=== PATIENT | male | born 1980 | race Caucasian/White ===

== ENCOUNTER 2016-11-26 20:27 | Emergency (ER) | payer MEDICAID ==
[~2016-11-26] VITALS: Ht 167.6 cm; Wt 75.0 kg
[~2016-11-26 20:27] MED LIST: HYDR-3533 PO; NAPR500 PO
[2016-11-26 20:28] VITALS: BP 145/65; PULSE 76; RESP 15; TEMP 97.9; O2SAT 99
--- NOTE | 2016-11-26 22:44 | PD ---
HPI Chief Complaint: Cold / Flu Symptoms Time Seen by Provider: 22:42 Travel History International Travel<30 days: No Contact w/Intl Traveler<30days: No Traveled to known affect area: No History of Present Illness HPI Patient comes in complaining of cold/flulike symptoms ongoing for approximately 2 weeks. Patient is using [id number] medication with minimal relief of his symptoms. Patient complaining of cough, congestion, sore throat, and cold sweats. Patient states he works at a [employer]. Denies any nausea, vomiting, chest pain, shortness of breath, diarrhea, or abdominal pain. Denies anything making it worse. States cough is occasionally productive. PFSH Past Medical History Diminished Hearing: No Social History Alcohol Use: Yes (OCCASIONALLY) Tobacco Use: No Substance Use: No Allergies-Medications (Allergen,Severity, Reaction): Coded Allergies: No Known Allergies (Unverified , 11/26/16) Reported Meds & Prescriptions Reported Meds & Active Scripts Active Ventolin Hfa 18 GM Inh (Albuterol Sulfate) 90 Mcg/Act Aer 2 Puff INH Q4H PRN Amoxicillin 875 Mg Tab 875 Mg PO BID 10 Days Lortab 5 mg/325 mg (Hydrocodone/Acetaminophen 5 mg/325 mg) 1 Tab 1 Tab PO Q6H PRN Naprosyn (Naproxen) 500 Mg Tab 500 Mg PO BID Review of Systems Except as stated in HPI: all other systems reviewed are Neg Physical Exam Narrative GENERAL: Well-developed, well nourished, in no acute distress, and non-ill appearing. SKIN: Warm and dry. HEAD: Atraumatic. Normocephalic. EYES: Pupils equal and round. EOMI. No scleral icterus. No injection or drainage. ENT: No nasal bleeding or discharge. Mucous membranes pink and moist. Tympanic membranes pearly walker bilaterally. Posterior pharynx mildly erythematous without exudate. Uvula is midline. Tenderness to facial sinuses to palpation. NECK: Trachea midline. No cervical lymphadenopathy. Supple. No nuclear rigidity. CARDIOVASCULAR: Regular rate and rhythm. No murmur appreciated. RESPIRATORY: No accessory muscle use. No respiratory distress. Clear to auscultation. Breath sounds equal bilaterally. MUSCULOSKELETAL: No obvious deformities. No clubbing. No cyanosis. No edema. Full range of motion. NEUROLOGICAL: Awake and alert. No obvious cranial nerve deficits. Motor grossly within normal limits. Normal speech. PSYCHIATRIC: Appropriate mood and affect; insight and judgment normal. Data Data Last Documented VS Vital Signs Date Time Temp Pulse Resp B/P Pulse Ox O2 Delivery O2 Flow Rate FiO2 11/26/16 20:28 97.9 76 15 145/65 99 Room Air Orders Chest, Single Ap (11/26/16 ) Group A Rapid Strep Screen (11/26/16 22:39) Strep Culture (Group A) (11/26/16 22:42) MDM Medical Decision Making Medical Screen Exam Complete: Yes Emergency Medical Condition: Yes Differential Diagnosis Strep pharyngitis, viral pharyngitis, pneumonia, bronchitis, upper store infection, sinusitis, other Narrative Course Patient looks great, non-ill appearing. The patient is tolerating fluids and is well hydrated. Appears acute sinusitis. No clinical evidence by history or evaluation to suspect meningitis and/or sepsis. There was no evidence to suggest deep abscess or cavernous sinus involvement. I discussed with the patient, diagnosis, plan of care, medications and to follow up with the patients primary physician. The patient was instructed to return if the worsens in anyway, especially if not tolerating fluids, increased sinus pain or swelling, worsening headache, persistent fever, difficulty swallowing or breathing, or as needed. The patient agreed with plan. Patient in no obvious distress upon re-evaluation. All pertinent laboratory/ Radiology result(s) discussed with patient. Patient was asked if they wanted to speak to my attending, which the patient did not wish to do at this time. Any questions/concerns in reference to patient diagnosis/condition discussed and clarified prior to patient's discharge. Reinforced sheer importance of close follow up with patient's primary physician or primary care clinic. Instructed patient to return to ED immediately, if symptoms return/worsen. Pt showed understanding of above instructions. Further instructions and recommendations were detailed in discharge paperwork. Pt ambulated without difficulty out of ED at discharge. Diagnosis Primary Impression: Sinusitis Qualified Code: J01.90 - Acute sinusitis, recurrence not specified, unspecified location Additional Impression: Cough Patient Instructions: Acute Cough (GEN), General Instructions, Sinusitis (ED) Additional Instructions: Follow-up with your primary care physician or ENT next week for reevaluation. Take all medication as prescribed. Use [id number] Tylenol and/or ibuprofen as needed for pain and/or ear. Follow instructions on the packaging. Drink plenty of non-caffeinated and nonalcoholic fluids. Return to the emergency department if symptoms get worse. Med/Other Pt SpecificInfo: Prescription(s) given Scripts Albuterol 18 GM Inh (Ventolin Hfa 18 GM Inh)90 Mcg/Act Aer2 Puff INH Q4H PRN ( COUGH) #1 INHALER Ref 0 Prov:Sasha Melton MD 11/26/16 Amoxicillin 875 Mg Xhm510 Mg PO BID 10 Days Ref 0 Prov:Sasha Melton MD 11/26/16 Disposition: 01 DISCHARGE HOME Condition: Stable James Infante Nov 26, 2016 22:44
--- NOTE | 2016-11-26 22:57 | RADRPT ---
EXAM DATE/TIME: 11/26/2016 22:40 [facility] COMPARISON: No previous studies available for comparison. INDICATIONS : Cough. Cold/flu symptoms. MEDICAL HISTORY : None. SURGICAL HISTORY : None. ENCOUNTER: Initial ACUITY: 2 weeks PAIN SCORE: 0/10 LOCATION: chest FINDINGS: A single view of the chest demonstrates the lungs to be symmetrically aerated without evidence of mas s, infiltrate or effusion. The cardiomediastinal contours are unremarkable. Osseous structures are intact. CONCLUSION: No acute disease. Eyad Lim MD on November 26, 2016 at 22:55 Board Certified Radiologist. This report was verified electronically.
[2016-11-26] MEDS ORDERED: VENTAER INH (23:48)
[2016-11-26] MEDS ORDERED: AMOX875T PO (23:48)
== END 2016-11-27 00:09 | disposition home or self-care (01) ==
LOC: NEPB 20:27
DX: J01.90 Acute sinusitis, unspecified (principal); R05 Cough
CPT/HCPCS: 71010; 87081; 87880; 99283